=== PATIENT | female | born 1960 | race Caucasian/White ===

== ENCOUNTER → 2017-12-27 09:54 | Outpatient (REF) | payer SELFPAY ==
[2017-12-27 13:29] LABS: Basophils % 0.5 % (0.1-2.0); Eosinophils # 0.1 K/mm3 (0.0-0.4); Eosinophils % 1.3 % (0.1-12.0); Hematocrit 43.2 % (37.0-47.0); Hemoglobin 14.6 g/dL (12.2-16.2); Lymphocytes # 3.1 K/mm3 (0.7-4.5); Lymphocytes % 38.3 K/mm3 (10-50); Mean Corpuscular HGB Conc 33.8 g/dL (31.8-35.4); Mean Corpuscular Hemoglobin 30.2 pg (27.0-31.2); Mean Corpuscular Volume 89.4 fl (81-99); Mean Platelet Volume 7.6 fl (7.4-10.4); Monocytes # 0.5 K/mm3 (0.1-1.0); Monocytes % 5.9 % (1.7-9.3); Neutrophils # 4.4 K/mm3 (1.8-7.8); Neutrophils % 53.9 % (37.0-80.0); Platelet Count 301 K/mm3 (142-424); Red Blood Count 4.83 M/mm3 (4.20-5.40); Red Cell Distribution Width 12.3 % (11.5-17.5); White Blood Count 8.1 K/mm3 (4.8-10.8)
[2017-12-27 14:05] LABS: Alanine Aminotransferase 37 U/L (12-78); Albumin/Globulin Ratio 1.1 (1.1-1.8); Alkaline Phosphatase 93 U/L (46-116); Anion Gap 13.1 mEq/L (5-15); Aspartate Amino Transferase 22 U/L (15-37); Bilirubin,Total 0.3 mg/dL (0.2-1.0); Blood Urea Nitrogen 18 mg/dL (7-18); Calcium 9.6 mg/dL (8.5-10.1); Carbon Dioxide 30 mmol/L (21.0-32.0); Chloride 100 mmol/L (98-107); Chol/HDL Ratio 6.3 (1-3.5); Cholesterol 250 mg/dL (140-200); Creatinine,Serum 0.77 mg/dL (0.55-1.02); Estimated Glomerular Filt Rate 77 ml/min (>60); GFR (African American) 93 ML/MIN (>60); Globulin 3.8 gm/dl (1.3-3.2); Glucose 97 mg/dL (74-106); HDL Cholesterol 40 mg/dL (29-89); LDL Cholesterol 181 mg/dL (0-130); Potassium 4.1 mmoL/L (3.5-5.1); Sodium 139 mmol/L (136-145); T4 (Thyroxine) 8.5 ug/dl (4.7-13.3); Thyroid Stimulating Hormone 1.73 uIU/ml (0.358-3.740); Total Protein,Serum 7.8 gm/dL (6.4-8.2); Triglycerides 143 mg/dL (30-200); VLDL Cholesterol 29 mg/dL (0-40)
[2017-12-28 11:07] LABS: Vitamin D 25 Hydroxy 18.8 ng/mL (30.0-100.0)
== END ==
LOC: LAB 09:54
PROVIDERS: Visit Provider Physician Assistant
DX: R53.83 Other fatigue (principal)
CPT/HCPCS: 80053; 80061; 82652; 84436; 84443; 85025

== ENCOUNTER 2018-04-20 22:15 | Observation (INO) ==
[2018-04-20 22:59] LABS: Basophils % 0.3 % (0.1-2.0); Eosinophils # 0.1 K/mm3 (0.0-0.4); Eosinophils % 1.5 % (0.1-12.0); Hematocrit 42.2 % (37.0-47.0); Hemoglobin 14.3 g/dL (12.2-16.2); Lymphocytes # 3.4 K/mm3 (0.7-4.5); Lymphocytes % 37.4 K/mm3 (10-50); Mean Corpuscular HGB Conc 33.8 g/dL (31.8-35.4); Mean Corpuscular Hemoglobin 29.8 pg (27.0-31.2); Mean Corpuscular Volume 88.3 fl (81-99); Mean Platelet Volume 7.1 fl (7.4-10.4); Monocytes # 0.5 K/mm3 (0.1-1.0); Monocytes % 5.2 % (1.7-9.3); Neutrophils % 55.5 % (37.0-80.0); Platelet Count 294 K/mm3 (142-424); Red Blood Count 4.78 M/mm3 (4.20-5.40); Red Cell Distribution Width 12.8 % (11.5-17.5)
--- NOTE | 2018-04-20 23:02 | Emergency Department Note ---
ED Disposition Clinical Impression: Chest pain Qualifiers: Chest pain type: precordial pain Qualified Code(s): R07.2 - Precordial pain Disposition: Admitted as Observation Condition on Discharge: Good Referrals: Silverio Tinsley MD [Primary Care Provider] - - Critical Care Critical Care Time: No Attestation: On 04/20/18, the high probability of a clinically significant, sudden or life threatening deterioration of the following system(s) required my full and direct attention, intervention and personal management. The time I documented below is in addition to time spent performing reported procedures but includes the following listed in this critical care notation. Medical Decision Making - Medical Records Medical records reviewed: Yes: I reviewed the patient's medical records. - Jamarcus Inquiry Pt receiving controlled substance: No Vital Signs: 04/20/18 22:20 04/20/18 23:10 Temperature 98.2 F Temperature Source Oral Pulse Rate [Right Brachial] 81 67 Respiratory Rate 14 14 Blood Pressure [Right Arm] 162/93 143/80 Blood Pressure Mean [Right Arm] 116 101 Blood Pressure Source [Right Arm] Automatic Cuff Automatic Cuff Blood Pressure Position [Right Arm] Sitting Sitting 02 Sat by Pulse Oximetry 99 100 Oxygen Delivery Method Room Air Room Air - Lab Data Lab results reviewed: Yes: I reviewed the patient's lab results. Lab Results 04/20/18 22:45: WBC 9.0, RBC 4.78, Hgb 14.3, Hct 42.2, MCV 88.3, MCH 29.8, MCHC 33.8, RDW 12.8, Plt Count 294, MPV 7.1 L, Neut % (Auto) 55.5, Lymph % (Auto) 37.4, [place] % (Auto) 5.2, Eos % (Auto) 1.5, Baso % (Auto) 0.3, Neut # (Auto) 5.0 , Lymph # (Auto) 3.4, [place] # (Auto) 0.5, Eos # (Auto) 0.1, Baso # (Auto) 0.0 04/20/18 22:45: Sodium 143, Potassium 3.8, Chloride 105, Carbon Dioxide 30, Anion Gap 11.8, BUN 13, Creatinine 1.04 H, Estimated Creat Clear 73, Estimated GFR 54 L, Est GFR ( Amer) 66, Glucose 106, Calcium 9.3, Troponin I < 0.02 04/20/18 23:25: Urine Color Yellow, Urine Appearance Sl cloudy, Urine pH 7.0, Ur Specific [place] 1.010, Urine Protein Negative, Urine Glucose (UA) Negative, Urine Ketones Negative, Urine Blood Negative, Urine Nitrate Negative, Urine Bilirubin Negative, Urine Urobilinogen 0.2, Ur Leukocyte Esterase 1+ A, Urine WBC 10-20, Ur Squamous Epith Cells 10-20, Urine Bacteria 1+ Result diagrams: 04/20/18 22:45 04/20/18 22:45 Orders (Tests/Meds): ED MEDICATIONS Generic Name Dose Route Start Last Admin Trade Name Freq PRN Reason Stop Dose Admin Sodium Chloride 1,000 mls @ 999 mls/hr 04/20/18 22:45 04/20/18 22:42 Sod Chlor 0.9% 1000ml Bag IV 04/20/18 23:45 999 mls/hr .Q1H1M ADELA Administration Discontinued Medications Generic Name Dose Route Start Last Admin Trade Name Freq PRN Reason Stop Dose Admin Aspirin 324 mg 04/20/18 22:34 04/20/18 22:40 Aspirin 81mg Chewable Tablet PO 04/20/18 22:35 324 mg ONCE ONE Administration Famotidine 20 mg 04/20/18 23:04 04/20/18 23:08 Pepcid 20mg/2ml Vial IV 04/20/18 23:05 20 mg ONCE ONE Administration Metoclopramide HCl 10 mg 04/20/18 23:04 04/20/18 23:08 Reglan 10mg/2ml Vial IVP 04/20/18 23:05 10 mg ONCE ONE Administration Ondansetron HCl 4 mg 04/20/18 22:34 04/20/18 22:40 Zofran 4mg/2ml Vial IV 04/20/18 22:35 4 mg ONCE ONE Administration ORDERS Category Date Time Status XR chest 2V Stat Exams 04/20/18 22:33 Taken Urine Culture Stat Micro 04/20/18 23:25 Received ECG Request by /Mi Stat Y 04/20/18 22:33 Ordered - Radiology Data #1 Image(s): Chest Image Reviewed: Yes I reviewed the patient's radiology image Preliminary Findings: Normal/NAD - ECG Data Tracing #1 I reviewed this ECG and interpreted as documented below: Normal Sinus Rhythm: Yes Ischemic changes: non-specific ST-T wave changes General Adult HPI - General Chief complaint: PAIN Stated complaint: PAIN BETWEEN SHOULDERS Time Seen by Provider: 04/20/18 22:30 Mode of Arrival: Ambulatory Source of Information: Patient, Spouse, Medical Record Limitations: No Limitations Description of Symptoms (Recalled from ER Triage Doc. by RN): Pt states she is having pain in between her shoulders, and burning in her chest, and pain in epigastric pain that started about 7pm last 24hours. Pt also states she is sick to her stomach. Pt denies any other symptoms at this time, and denies any injuries leading up to the pain. - History of Present Illness HPI narrative: pt with ant chest pain with rad to back over the last few days - no known hear disease and has gerd - no melena and no sob or resp sx Onset (ago): day(s) Location: chest Radiation: back Severity: moderate Associated symptoms: denies other symptoms Treatments prior to arrival: none - Related Data Home Medications Medication Instructions Recorded Confirmed Lisinopril/Hydrochlorothiazide 2 tab PO DAILY 04/20/18 04/20/18 [Lisinopril-Hctz 20-12.5 mg Tab] cloNIDine HCl [Catapres] 0.1 mg PO QHS 04/20/18 04/20/18 Allergies Allergy/AdvReac Type Severity Reaction Status Date / Time No Known Allergies Allergy Verified 04/20/18 22:31 [facility] History I have reviewed the patient's past medical history: Yes Medical History: Reports:: Hyperlipidemia, Hypertension Other Surgeries: Yes: Other Amputation: No Fractures: No Comment: GALLBLADDER REMOVAL - Social History Smoking Status: Never smoker Alcohol Intake: never Substance Use Type: denies use Occupational Status: employed Housing: house Household Members: spouse - Psychiatric History Expresses thoughts of harming self/others: None Suicide Plan Description: No Plan Family Hx:: No significant family history ROS Obtained: Yes All systems reviewed & no additional complaints - Constitutional Constitutional: Denies fever(s) - Eyes Eyes: Denies change in vision - ENT Ears, Nose, Mouth, and Throat: Denies sore throat - Cardiovascular Cardiovascular: Reports chest pain - Respiratory Respiratory: Yes cough, Yes non-productive cough, Yes dyspnea, No coughing up blood - Gastrointestinal Gastrointestingal: Denies: abdominal pain - Genitourinary Female Genitourinary: Denies hematuria - Musculoskeletal Musculoskeletal: Denies joint pain, Denies joint swelling - Integumentary/Breasts Skin/Breast: Denies rash - Neurologic Neurologic: Denies headache(s) Physical Exam - General General appearance: in no apparent distress - Head Head exam: normocephalic - Eye Eye exam: Present: PERRL, EOMI - ENT ENT exam: Present: mucous membranes moist - Neck Neck exam: Present: trachea midline - Respiratory Respiratory exam: Present: normal lung sounds bilaterally - Cardiovascular Cardiovascular exam: Present: regular rate, systolic murmur - Abdominal Exam Abdominal exam: Present: soft - Extremities Exam Extremities exam: Absent: calf tenderness - Back Exam Back exam: Present: normal inspection - Neurological Exam Neurological exam: Present: alert, oriented X3, CN II-XII intact - Psychiatric Psychiatric exam: Present: normal affect - Skin Skin exam: Absent: rash
[2018-04-20 23:09] LABS: Anion Gap 11.8 mEq/L (5-15); Blood Urea Nitrogen 13 mg/dL (7-18); Calcium 9.3 mg/dL (8.5-10.1); Carbon Dioxide 30 mmol/L (21.0-32.0); Chloride 105 mmol/L (98-107); Glucose 106 mg/dL (74-106); Potassium 3.8 mmoL/L (3.5-5.1); Sodium 143 mmol/L (136-145)
[2018-04-20 23:30] LABS: Appearance,Urine SL CLOUDY (Clear); Bilirubin,Urine Negative (Negative); Blood, Urine Negative (Negative); Color,Urine YELLOW (Yellow); Glucose,Urine (UA) Negative (Negative); Ketones,Urine Negative (Negative); Leukocyte Esterase,Urine 1+ (Negative); Microscopic, Urine URINE MICROSCOPIC (MICROSCOPIC); Protein,Urine Negative (Negative); Urobilinogen,Urine 0.2 EU/dl (0.2)
[2018-04-20 23:33] LABS: Bacteria,Urine 1+ /lpf
[2018-04-21 06:56] LABS: Basophils % 0.3 % (0.1-2.0); Eosinophils % 0.6 % (0.1-12.0); Lymphocytes # 2.3 K/mm3 (0.7-4.5); Lymphocytes % 30.7 K/mm3 (10-50); Mean Corpuscular HGB Conc 32.9 g/dL (31.8-35.4); Mean Corpuscular Hemoglobin 29.2 pg (27.0-31.2); Mean Corpuscular Volume 88.6 fl (81-99); Mean Platelet Volume 6.8 fl (7.4-10.4); Monocytes # 0.4 K/mm3 (0.1-1.0); Monocytes % 5.2 % (1.7-9.3); Neutrophils # 4.7 K/mm3 (1.8-7.8); Neutrophils % 63.2 % (37.0-80.0); Platelet Count 253 K/mm3 (142-424); Red Blood Count 4.18 M/mm3 (4.20-5.40); Red Cell Distribution Width 12.7 % (11.5-17.5); White Blood Count 7.5 K/mm3 (4.8-10.8)
[2018-04-21 07:13] LABS: Hemoglobin 12.2 g/dL (12.2-16.2)
[2018-04-21 07:28] LABS: Anion Gap 9.8 mEq/L (5-15); Blood Urea Nitrogen 11 mg/dL (7-18); Calcium 8.4 mg/dL (8.5-10.1); Carbon Dioxide 29 mmol/L (21.0-32.0); Chloride 107 mmol/L (98-107); Chol/HDL Ratio 5.4 (1-3.5); Cholesterol 174 mg/dL (140-200); Glucose 110 mg/dL (74-106); HDL Cholesterol 32 mg/dL (29-89); LDL Cholesterol 120 mg/dL (0-130); Potassium 3.8 mmoL/L (3.5-5.1); Sodium 142 mmol/L (136-145); Triglycerides 108 mg/dL (30-200); VLDL Cholesterol 22 mg/dL (0-40)
--- NOTE | 2018-04-21 09:17 | History & Physical Report ---
*Admission Date: 04/20/18 *Chief complaint: chest pain *History of present illness: this wf with new onset of ant chest pain which has gripping quality with rad to back over the last 2 days with act and rest - pos fh of ht disease- she also has had gerd sx but feels this is different - no melena or palpitations and no syncope - pt admitted for card eval and treatment [facility] History I have reviewed the patient's past medical history: Yes Medical History: Reports:: Hyperlipidemia, Hypertension Other Surgeries: Yes: Cholecystectomy, Tubal Ligation, Other Amputation: No Fractures: No - *Social History Educational Level: Attended College Smoking Status: Never smoker Alcohol Intake: never Substance Use Type: denies use Occupational Status: employed Housing: house Household Members: spouse - Psychiatric History Expresses thoughts of harming self/others: None Suicide Plan Description: No Plan *Family Hx:: No significant family history Review of Systems - Review of Systems Review of systems:: pertinent systems reviewed and negative unless documented below - Constitutional Denies fever(s) - Eyes Denies change in vision - ENT Denies sore throat, Denies tongue swelling - *Cardiovascular Reports chest pain, Reports chest pain at rest - *Respiratory Denies cough - *Gastrointestinal Denies abdominal pain, Denies black, tarry stools - *Genitourinary Denies blood in urine - *Musculoskeletal Denies joint pain - Integumentary/Breasts Denies rash - *Neurologic Denies headache(s), Denies seizure-like activity Meds Home Medications Medication Instructions Recorded Confirmed Type Lisinopril/Hydrochlorothiazide 2 tab PO DAILY 04/20/18 04/20/18 History [Lisinopril-Hctz 20-12.5 mg Tab] cloNIDine HCl [Catapres] 0.1 mg PO QHS 04/20/18 04/20/18 History Allergies Allergy/AdvReac Type Severity Reaction Status Date / Time No Known Allergies Allergy Verified 04/20/18 22:31 Exam Vital signs and Labs for Last 24 Hours: Temp Pulse Resp BP Pulse Ox 98.6 F 64 16 122/76 100 04/21/18 08:00 04/21/18 08:00 04/21/18 08:00 04/21/18 08:57 04/21/18 08:00 Laboratory Results - last 24 hr 04/20/18 22:45: WBC 9.0, RBC 4.78, Hgb 14.3, Hct 42.2, MCV 88.3, MCH 29.8, MCHC 33.8, RDW 12.8, Plt Count 294, MPV 7.1 L, Neut % (Auto) 55.5, Lymph % (Auto) 37.4, [place] % (Auto) 5.2, Eos % (Auto) 1.5, Baso % (Auto) 0.3, Neut # (Auto) 5.0 , Lymph # (Auto) 3.4, [place] # (Auto) 0.5, Eos # (Auto) 0.1, Baso # (Auto) 0.0 04/20/18 22:45: Sodium 143, Potassium 3.8, Chloride 105, Carbon Dioxide 30, Anion Gap 11.8, BUN 13, Creatinine 1.04 H, Estimated Creat Clear 73, Estimated GFR 54 L, Est GFR ( Amer) 66, Glucose 106, Calcium 9.3, Troponin I < 0.02 04/20/18 23:25: Urine Color Yellow, Urine Appearance Sl cloudy, Urine pH 7.0, Ur Specific [place] 1.010, Urine Protein Negative, Urine Glucose (UA) Negative, Urine Ketones Negative, Urine Blood Negative, Urine Nitrate Negative, Urine Bilirubin Negative, Urine Urobilinogen 0.2, Ur Leukocyte Esterase 1+ A, Urine WBC 10-20, Ur Squamous Epith Cells 10-20, Urine Bacteria 1+ 04/21/18 00:10: Troponin I < 0.02 04/21/18 03:00: Troponin I < 0.02 04/21/18 06:25: WBC 7.5, RBC 4.18 L, Hgb 12.2 D, Hct 37.0, MCV 88.6, MCH 29.2, MCHC 32.9, RDW 12.7, Plt Count 253, MPV 6.8 L, Neut % (Auto) 63.2, Lymph % (Auto ) 30.7, [place] % (Auto) 5.2, Eos % (Auto) 0.6, Baso % (Auto) 0.3, Neut # (Auto) 4.7, Lymph # (Auto) 2.3, [place] # (Auto) 0.4, Eos # (Auto) 0.0, Baso # (Auto) 0.0 04/21/18 06:25: Sodium 142, Potassium 3.8, Chloride 107, Carbon Dioxide 29, Anion Gap 9.8, BUN 11, Creatinine 0.97, Estimated Creat Clear 78, Estimated GFR 59, Est GFR ( Amer) 71, Glucose 110 H, Calcium 8.4 L, Troponin I < 0.02, Triglycerides 108, Cholesterol 174, LDL Cholesterol 120, VLDL Cholesterol 22, HDL Cholesterol 32, Cholesterol/HDL Ratio 5.4 H I & O for Last 24 hours: Intake & Output 04/18/18 04/19/18 04/20/18 04/21/18 11:59 11:59 11:59 11:59 Intake Total 906 / 906 Balance 906 / 906 Weight 174 lb 5 oz - Constitutional no acute distress - *Routine HEENT Exam Head: Present: normocephalic, atraumatic Eye: Present: EOMI, PERRL. Absent: conjunctival icterus ENT: Present: mucous membranes dry - *Routine Neck Exam Present: supple. Absent: JVD - *Routine Respiratory Exam Present: CTA bilaterally - *Routine Cardiovascular Exam Present: RRR, murmur - *Routine Abdominal Exam Present: soft - *Routine Extremities Exam Absent: calf tenderness - *Routine Skin Exam Present: intact - *Routine Neurological Exam Present: alert, oriented X3, CN II-XII intact - Routine Psychiatric Exam Present: normal affect H&P: Result - Labs Labs: Short CBC 04/20/18 04/21/18 Range/Units 22:45 06:25 WBC 9.0 7.5 (4.8-10.8) K/mm3 Hgb 14.3 12.2 D (12.2-16.2) g/dL Hct 42.2 37.0 (37.0-47.0) % Plt Count 294 253 (142-424) K/mm3 BMP 04/20/18 04/21/18 22:45 06:25 Sodium 143 142 Potassium 3.8 3.8 Chloride 105 107 Carbon Dioxide 30 29 BUN 13 11 Creatinine 1.04 H 0.97 Glucose 106 110 H Calcium 9.3 8.4 L Cardiac Enzymes 04/20/18 04/21/18 04/21/18 Range/Units 22:45 00:10 03:00 Troponin I < 0.02 < 0.02 < 0.02 (0.00-0.06) ng/ml 04/21/18 Range/Units 06:25 Troponin I < 0.02 (0.00-0.06) ng/ml Urine 04/20/18 Range/Units 23:25 Urine Color Yellow (Yellow) Urine Appearance Sl cloudy (Clear) Urine pH 7.0 (5.0-8.5) Ur Specific [place] 1.010 (1.005-1.030) Urine Protein Negative (Negative) Urine Glucose (UA) Negative (Negative) Assessment and Plan (1) Chest pain Current visit: Yes Status: Acute Qualifiers: Chest pain type: precordial pain Qualified Code(s): R07.2 - Precordial pain Category: Medical Code(s): R07.9 - Chest pain, unspecified (2) Hypertension Current visit: No Status: Chronic Qualifiers: Hypertension type: essential hypertension Qualified Code(s): I10 - Essential (primary) hypertension Category: Medical Code(s): I10 - Essential (primary) hypertension (3) GERD (gastroesophageal reflux disease) Current visit: Yes Status: Acute Category: Medical Code(s): K21.9 - Gastro -esophageal reflux disease without esophagitis
--- NOTE | 2018-04-21 11:44 | Pharmacy Consult Notes ---
[facility] Pharmacy VTE Monitoring - Patient Demographics Admission date: 04/21/18 Report Date: 04/21/18 Time: 11:44 Allergies/Adverse Reactions: Patient Allergies No Known Allergies Allergy (Verified 04/20/18 22:31) Height: 1.68 m Weight: 79.067 kg Patient Problems: Current Active Problems (Last Updated 12/31/17 @ 08:57 by RABIA Bermudez) Chest pain (Acute) GERD (gastroesophageal reflux disease) (Acute) - VTE Risk Labs: VTE Related Lab Results Hgb 12.2 g/dL (12.2-16.2) D 04/21/18 06:25 Hct 37.0 % (37.0-47.0) 04/21/18 06:25 Plt Count 253 K/mm3 (142-424) 04/21/18 06:25 BUN 11 mg/dL (7-18) 04/21/18 06:25 Creatinine 0.97 mg/dL (0.55-1.02) 04/21/18 06:25 Estimated Creat Clear 78 mL/min (0-300) 04/21/18 06:25 Was VTE Risk Assessment Performed: Yes VTE Score: 1 VTE Risk Level: Very Low Risk - Prophylaxis VTE Prophylaxis Ordered?: Yes Types of VTE Prophylaxis: TEDS Knee High Location of Applied Device: Bilateral Lower Extremeties
[2018-04-22 07:53] VITALS: BP 111/65
--- NOTE | 2018-04-22 10:19 | Consult Report ---
History of Present Illness Consult date: 04/22/18 Requesting physician: Silverio Tinsley Consult reason: chest pain Chief complaint: chest pain, back pain Additional Medical History:: 1. Hypertension, treated for about 20 years 2. Hyperlipidemia, treated for about 20 years 3. Family history of coronary artery disease in her brother with recent MA 4. GERD History of present illness: 58-year-old white female with complaint of burning sensation between the shoulder blades with associated anterior chest discomfort and nausea the last 4 several hours presented to the emergency department for further evaluation. Patient was given a combination of antacid and nitroglycerin paste with gradual improvement in symptoms. Patient was admitted for observation with serial cardiac enzymes normal 4. EKG is sinus with no acute ST segment changes. Patient is long-term hypertensive and hyperlipidemic patient but denies tobacco use or history of diabetes. Her brother who is 3 years older than her recently had a myocardial infarction. Patient admits to taking approximately 800 mg of ibuprofen at night on a regular basis with symptoms of reflux noted. Patient does have somewhat of an active job with physical activity and denies any recent exertional chest pain or shortness of breath. Cardiology consulted for evaluation recommendations. Echocardiogram has been performed with results pending at this time. [facility] History Medical History: Reports:: Hyperlipidemia, Hypertension Other Surgeries: Yes: Cholecystectomy, Tubal Ligation, Other Amputation: No Fractures: No - *Social History Educational Level: Attended College Smoking Status: Never smoker Alcohol Intake: never Substance Use Type: denies use Occupational Status: employed Housing: house Household Members: spouse - Psychiatric History Expresses thoughts of harming self/others: None Suicide Plan Description: No Plan *Family Hx:: No significant family history Meds Home Medications Medication Instructions Recorded Confirmed Type Lisinopril/Hydrochlorothiazide 2 tab PO DAILY 04/20/18 04/20/18 History [Lisinopril-Hctz 20-12.5 mg Tab] cloNIDine HCl [Catapres] 0.1 mg PO HS 04/20/18 04/21/18 History Allergies Allergy/AdvReac Type Severity Reaction Status Date / Time No Known Allergies Allergy Verified 04/20/18 22:31 Review of Systems - *Cardiovascular Reports chest pain, Denies shortness of breath - *Respiratory Denies shortness of breath with activity - *Gastrointestinal Reports abdominal pain, Reports heartburn, Reports nausea - *Musculoskeletal Denies joint pain - *Neurologic Denies headache(s), Denies seizure-like activity Exam Vital signs and Labs for Last 24 Hours: Temp Pulse Resp BP Pulse Ox 98.0 F 62 16 111/65 96 04/22/18 07:51 04/22/18 07:51 04/22/18 07:51 04/22/18 07:51 04/22/18 07:51 I & O for Last 24 hours: Intake & Output 04/19/18 04/20/18 04/21/18 04/22/18 11:59 11:59 11:59 11:59 Intake Total 906 / 906 2412 / 2412 Balance 906 / 906 2412 / 2412 Weight 174 lb 5 oz Microbiology Reports for the Last 24 Hours: Microbiology 04/20/18 23:25 Urine,Clean Catch Urine Culture - Preliminary NO GROWTH AFTER 24 HOURS - *Routine Neck Exam Absent: JVD, carotid bruit - *Routine Respiratory Exam Present: CTA bilaterally - *Routine Cardiovascular Exam Present: RRR. Absent: murmur, gallop, rubs - *Routine Extremities Exam Absent: edema - *Routine Neurological Exam Present: alert, oriented X3, moving all extremities Assessment and Plan (1) Chest pain Current visit: Yes Status: Acute Qualifiers: Chest pain type: precordial pain Qualified Code(s): R07.2 - Precordial pain Category: Medical Code(s): R07.9 - Chest pain, unspecified (2) Hypertension Current visit: No Status: Chronic Qualifiers: Hypertension type: essential hypertension Qualified Code(s): I10 - Essential (primary) hypertension Category: Medical Code(s): I10 - Essential (primary) hypertension (3) GERD (gastroesophageal reflux disease) Current visit: Yes Status: Acute Category: Medical Code(s): K21.9 - Gastro -esophageal reflux disease without esophagitis - Assessment and plan all Dx Assessment and Plan for all problems:: 1. Hours of chest pain with normal troponins and normal EKG. Echocardiogram pending but would recommend medical therapy at this time. 2. Discontinue clonidine 3. Add metoprolol succinate 25 mg daily in the evening time 4. Continue PPI therapy along with lisinopril. 5. Okay for discharge from cardiology standpoint with follow-up in 1-2 weeks.
--- NOTE | 2018-04-22 12:01 | Discharge Summary ---
General - General Admission date:: 04/21/18 Discharge date: 04/22/18 HPI HPI: this wf with new onset of ant chest pain which has gripping quality with rad to back over the last 2 days with act and rest - pos fh of ht disease- she also has had gerd sx but feels this is different - no melena or palpitations and no syncope - pt admitted for card eval and treatment Hospital Course Hospital Course: pt improved with iv meds and has stable card enz and she was seen by card -. Hypertension, treated for about 20 years 2. Hyperlipidemia, treated for about 20 years 3. Family history of coronary artery disease in her brother with recent HI 4. GERD History of present illness: 58-year-old white female with complaint of burning sensation between the shoulder blades with associated anterior chest discomfort and nausea the last 4 several hours presented to the emergency department for further evaluation. Patient was given a combination of antacid and nitroglycerin paste with gradual improvement in symptoms. Patient was admitted for observation with serial cardiac enzymes normal 4. EKG is sinus with no acute ST segment changes. Patient is long-term hypertensive and hyperlipidemic patient but denies tobacco use or history of diabetes. Her brother who is 3 years older than her recently had a myocardial infarction. Patient admits to taking approximately 800 mg of ibuprofen at night on a regular basis with symptoms of reflux noted. Patient does have somewhat of an active job with physical activity and denies any recent exertional chest pain or shortness of breath. Cardiology consulted for evaluation recommendations. Echocardiogram has been performed with results pending at this time Objective Vital signs: Temp Pulse Resp BP Pulse Ox 98.0 F 62 16 111/65 96 04/22/18 07:51 04/22/18 07:51 04/22/18 07:51 04/22/18 07:51 04/22/18 07:51 no acute distress - *Routine HEENT Exam Head: Present: normocephalic Eye: Present: EOMI, PERRL ENT: Present: mucous membranes dry - *Routine Neck Exam Present: supple - *Routine Respiratory Exam Present: CTA bilaterally - *Routine Cardiovascular Exam Present: RRR - *Routine Abdominal Exam Present: soft - *Routine Extremities Exam Present: full ROM - *Routine Skin Exam Present: intact - *Routine Neurological Exam Present: alert, oriented X3, CN II-XII intact - Routine Psychiatric Exam Present: normal affect Results Labs on day of discharge: Preliminary micro results at discharge 04/20/18 23:25 Urine Culture - Preliminary Urine,Clean Catch NO GROWTH AFTER 24 HOURS DS: Diagnosis - Discharge Diagnosis (1) Chest pain Status: Acute (2) Hypertension Status: Chronic (3) GERD (gastroesophageal reflux disease) Status: Acute Discharge Plan - Patient Discharge Instructions ACTIVITY: Continue current activity DIET: continue same diet - Follow up Plan Disposition: Home, Self-Snf Medications: Home Medications Medication Instructions Recorded Confirmed Type Lisinopril/Hydrochlorothiazide 2 tab PO DAILY 04/20/18 04/20/18 History [Lisinopril-Hctz 20-12.5 mg Tab] cloNIDine HCl [Catapres] 0.1 mg PO HS 04/20/18 04/21/18 History Prescriptions/Medication Reconciliation: New hydroCHLOROthiazide [HCTZ 25mg tab] 25 mg PO DAILY tablet Discontinued cloNIDine HCl [Catapres] 0.1 mg PO HS No Action Lisinopril/Hydrochlorothiazide [Lisinopril-Hctz 20-12.5 mg Tab] 2 tab PO DAILY
--- NOTE | 2018-04-22 21:46 | Cardiology Report ---
PROCEDURE: 2-D M-mode and color Doppler study INDICATIONS FOR THE TEST: Chest pain X COPD Heart Murmur Tobacco Smoking Palpitations Fatigue Syncope Edema HypertensionXDiabetes Mellitus Rheumatic Fever SOB MUNOZ Obesity HyperlipidemiaX Family History HDX Additional History PATIENT INFORMATION HEIGHT: 66 WEIGHT:174 GENDER: Female B/P:122/76 2-D/M-MODE INTERPRETATION: 2-D MEASUREMENTS OBSERVED VALUES IN CMS Right Ventricular Dimension (RVDd) 2.8 Interventricular Septum (Thickness)(IVsd) .9 Left Ventricular Internal Dimensions(LVIDd) 4.7 Left Ventricular Posterior Wall (Thickness)(LVPWd) .9 Aortic Root 3.0 Aortic Cusp Separation 1.7 Left Atrial Dimensions (LAD) 3.4 2D 1. Left atrium is normal size, left ventricle is normal size, there is no concentric left ventricular hypertrophy, visually estimated ejection fraction of 55% with no obvious regional wall motion abnormality. 2. The right atrium is normal size, right ventricle is mildly enlarged with normal contractility. 3. The aortic, mitral and tricuspid valve are grossly normal. 4. The pulmonic valve is poorly visualized. 5. No significant pericardial effusion noted. DOPPLER INTERROGATION: Doppler interrogation of the aortic, mitral and tricuspid valvular presence of mild mitral and tricuspid regurgitation, tricuspid regurgitant jet velocity is insufficient for calculation of the right ventricular systolic pressure, diastolic parameters are inconclusive. CONCLUSION: 1. Normal left ventricular size, preserved left ventricular systolic pressure. Estimated ejection fraction 55% no signal wall motion abnormality, diastolic parameters are inconclusive. 2. Mildly enlarged right ventricle with normal contractility. 3. Mild mitral and tricuspid regurgitation 4. No significant pericardial effusion noted.
== END 2018-04-22 13:15 | disposition home or self-care (01) ==
LOC: 2ND 22:15 → ER 22:15 → 2ND 04-21 00:10
PROVIDERS: ADMIT Emergency Medicine; ATTEND Emergency Medicine

== ENCOUNTER → 2019-04-29 17:33 | Outpatient (CLI) | payer OTHER, SELFPAY ==
[2019-04-29 19:58] LABS: Alanine Aminotransferase 29 U/L (12-78); Albumin Level 3.8 gm/dL (3.4-5.0); Alkaline Phosphatase 87 U/L (46-116); Anion Gap 12.9 mEq/L (5-15); Aspartate Amino Transferase 14 U/L (15-37); Bilirubin,Total 0.4 mg/dL (0.2-1.0); Blood Urea Nitrogen 12 mg/dL (7-18); Calcium 9.3 mg/dL (8.5-10.1); Carbon Dioxide 29 mmol/L (21.0-32.0); Chloride 101 mmol/L (98-107); Chol/HDL Ratio 5.9 (1-3.5); Cholesterol 225 mg/dL (140-200); Creatinine,Serum 0.95 mg/dL (0.55-1.02); Estimated Glomerular Filt Rate 60 ml/min (>60); GFR (African American) 73 ML/MIN (>60); Globulin 3.7 gm/dl (1.3-3.2); Glucose 84 mg/dL (74-106); HDL Cholesterol 38 mg/dL (29-89); LDL Cholesterol 149 mg/dL (0-130); Potassium 3.9 mmoL/L (3.5-5.1); Sodium 139 mmol/L (136-145); T4 (Thyroxine) 7.4 ug/dl (4.7-13.3); Total Protein,Serum 7.5 gm/dL (6.4-8.2); Triglycerides 191 mg/dL (30-200); VLDL Cholesterol 38 mg/dL (0-40)
[2019-04-29 21:50] LABS: Basophils % 0.4 % (0.1-2.0); Eosinophils # 0.1 K/mm3 (0.0-0.4); Eosinophils % 1.2 % (0.1-12.0); Hematocrit 41.7 % (37.0-47.0); Hemoglobin 13.6 g/dL (12.2-16.2); Lymphocytes # 3.3 K/mm3 (0.7-4.5); Lymphocytes % 36.3 % (10-50); Mean Corpuscular HGB Conc 32.6 g/dL (31.8-35.4); Mean Corpuscular Hemoglobin 29.4 pg (27.0-31.2); Mean Corpuscular Volume 90.3 fl (81-99); Mean Platelet Volume 7.9 fl (7.4-10.4); Monocytes # 0.5 K/mm3 (0.1-1.0); Monocytes % 5.3 % (1.7-9.3); Neutrophils # 5.1 K/mm3 (1.8-7.8); Neutrophils % 56.8 % (37.0-80.0); Platelet Count 341 K/mm3 (142-424); Red Blood Count 4.61 M/mm3 (4.20-5.40); Red Cell Distribution Width 12.7 % (11.5-17.5)
[2019-05-02 09:42] LABS: Vitamin D 25 Hydroxy 21.7 ng/mL (30.0-100.0)
== END ==
PROVIDERS: Visit Provider Physician Assistant
DX: I10 Essential (primary) hypertension (principal)
CPT/HCPCS: 80053; 80061; 82652; 84436; 84443; 85025

== ENCOUNTER → 2020-11-15 07:12 | Outpatient (CLI) | payer OTHER, SELFPAY ==
[2020-11-15 09:37] LABS: Coronavirus 19 IgG Antibody Negative (Negative); Coronavirus 19 IgM Antibody Negative (Negative)
== END ==
PROVIDERS: Visit Provider Ophthalmology
DX: Z01.812 Encounter for preprocedural laboratory examination (principal)
CPT/HCPCS: 36415; 86328

== ENCOUNTER 2020-11-16 07:13 | Day surgery (SDC) | payer OTHER, SELFPAY ==
[2020-11-09 10:53] VITALS: BMI 29.9
[2020-11-16 08:09] VITALS: BP 136/78; PULSE 60; RESP 18; TEMP 36.3; O2SAT 99
[2020-11-16 09:20] VITALS: BP 109/67; PULSE 59; RESP 16; O2SAT 100
[2020-11-16 09:25] VITALS: BP 109/65; PULSE 57; RESP 16; O2SAT 100
[2020-11-16 09:30] VITALS: BP 110/63; PULSE 55; RESP 16; O2SAT 100
[2020-11-16 09:35] VITALS: BP 109/61; PULSE 54; RESP 16; O2SAT 100
[2020-11-16 09:40] VITALS: BP 128/79; PULSE 55; RESP 16; TEMP 36.6; O2SAT 99
== END 2020-11-16 09:47 | disposition home or self-care (01) ==
LOC: OR 07:14
PROVIDERS: PCP Emergency Medicine; Visit Provider Ophthalmology
PROC: (CPT 66984; principal; 2020-11-16 09:00)
DX: H25.811 Combined forms of age-related cataract, right eye (principal); H02.834 Dermatochalasis of left upper eyelid; H02.831 Dermatochalasis of right upper eyelid; I10 Essential (primary) hypertension; E78.5 Hyperlipidemia, unspecified; K21.9 Gastro-esophageal reflux disease without esophagitis; Z82.49 Family history of ischemic heart disease and other diseases of the circulatory system; Z79.899 Other long term (current) drug therapy
CPT/HCPCS: 66984; V2632

== ENCOUNTER 2021-12-01 11:47 | Emergency (ER) | payer SELFPAY ==
[2021-12-01 13:30] VITALS: BP 131/89; PULSE 83; RESP 18; TEMP 37.3; O2SAT 98; BMI 28.0
[2021-12-01 14:05] LABS: UTC Influenza A Antigen Negative (Negative); UTC Influenza B Antigen Negative (Negative)
--- NOTE | 2021-12-01 14:05 | HMH.EDUTC ---
[facility] [place] Clinical Impression: Viral syndrome Disposition: Home, Self-Care Condition on Discharge: Good Instructions: DI for Viral Syndrome, Nausea and Vomiting-Adult, Diarrhea Additional Instructions: Drink extra fluids with and between meals. If you have difficulty drinking, try very small amounts of water or suck on ice chips. ? Avoid fruit juices, as these do not replace minerals and can actually increase diarrhea. ? Children and adults can use sports drinks to replenish electrolytes. Younger children and infants should use products formulated for children, like oral rehydration solutions. ? Eat food in small amounts and let your stomach recover. ? Get lots of rest. You may feel tired or weak. ? No greasy or fried foods for the next 24-48 hours BRAT diet Bananas Rice Apples and [place] ? Make sure to drink plenty of liquids ? Return if needed ? Straight to ER if any life threatening symptoms ? You was given an outpatient order for diarrhea panel, please collect specimen and bring back to outpatient lab then call back to the [facility] or follow up with family doctor for results ? Follow up with family doctor in the next 48-72 hours if no improvement or any worsening of symptoms Phenergan as prescribed for Vomiting Prescriptions: Promethazine HCl [Phenergan 12.5mg tablet] 12.5 mg PO Q6H PRN #8 tab PRN Reason: Vomiting Transmission Status: Pending to [id number] Referrals: Silverio Tinsley MD [Primary Care Provider] - As needed Forms: Work/School Release Time of Disposition: 14:23 Medical Decision Making - Jamarcus Inquiry Pt receiving controlled substance: No Jamarcus was queried for this patient: No Vital Signs: 12/01/21 13:30 Temperature 99.1 F Temperature Source Oral Pulse Rate [Right Brachial] 83 Respiratory Rate 18 Blood Pressure [Right Arm] 131/89 Blood Pressure Mean [Right Arm] 103 Blood Pressure Source [Right Arm] Automatic Cuff Blood Pressure Position [Right Arm] Sitting 02 Sat by Pulse Oximetry 98 Oxygen Delivery Method Room Air - Lab Data Lab results reviewed: Yes: I reviewed the patient's lab results. Medical Decision Narrative: Medication discussed with [place] [facility] [place] - General Stated complaint: vomiting, diarrhea Time Seen by Provider: 12/01/21 14:05 Mode of Arrival: Ambulatory Source of Information: Patient Limitations: No Limitations Description of Symptoms (Recalled from Triage Doc. by RN): PATIENT C/O NAUSEA, VOMITING, DIARRHEA, BODY ACHES AND CHILLS X 3 DAYS HEENT Symptoms (Recalled from RN notes): No Resp Symptoms (Recalled from RN notes): No Skin Symptoms (Recalled from RN notes): No MS Symptoms (Recalled from RN notes): No Functional Status (Recalled from RN notes): WNL - History of Present Illness Provider Complaint: Patient states that she has been feeling achy and having chills along with N/V/D States that she hasnt been able to keep nothing down but liquids State that she has been taking zofran and it isnt helping much with the vomiting and she was worried that she may have the flu - Related Data Home Medications Medication Instructions Recorded Confirmed Lisinopril/Hydrochlorothiazide 2 tab PO DAILY 12/01/21 12/01/21 [Lisinopril-Hctz 20-12.5 mg Tab] Metoprolol Succinate [Metoprolol 50 mg PO BID 12/01/21 12/01/21 Succinate 50mg Tablet*] Pantoprazole Sodium 40 mg PO DAILY 12/01/21 12/01/21 Previous Rx's Medication Instructions Recorded famotidine 20 mg tablet 20 mg PO DAILY #90 tab 05/18/21 Promethazine HCl [Phenergan 12.5mg 12.5 mg PO Q6H PRN #8 tab 12/01/21 tablet] Allergies Allergy/AdvReac Type Severity Reaction Status Date / Time No Known Allergies Allergy Verified 05/18/21 09:48 - Worker's Comp Is this a Worker's Comp case?: No [facility] History - Hepatitis A Screen Drug use history?: No High risk sexual behaviors?: No History of sexually transmitted infection?: No Currently employed?: No Childcare worker?:
[2021-12-01 14:34] VITALS: BP 131/89; PULSE 83; RESP 18; TEMP 37.3; O2SAT 98
== END 2021-12-01 14:38 | disposition home or self-care (01) ==
PROVIDERS: Emergency Provider Nurse Practitioner; PCP Emergency Medicine
DX: B34.9 Viral infection, unspecified (principal); I10 Essential (primary) hypertension; E78.5 Hyperlipidemia, unspecified; K21.9 Gastro-esophageal reflux disease without esophagitis; E55.9 Vitamin D deficiency, unspecified; G25.81 Restless legs syndrome; G43.909 Migraine, unspecified, not intractable, without status migrainosus; F41.9 Anxiety disorder, unspecified; Z79.899 Other long term (current) drug therapy; Z82.49 Family history of ischemic heart disease and other diseases of the circulatory system
CPT/HCPCS: 87804; 99213; G0463

== ENCOUNTER → 2021-12-08 17:38 | Outpatient (CLI) | payer SELFPAY ==
[2021-12-08 17:30] LABS: Basophils # 0.1 K/mm3 (0-0.2); Basophils % 0.9 % (0.1-2.0); Eosinophils # 0.2 K/mm3 (0.0-0.4); Hematocrit 42.1 % (37.0-47.0); Hemoglobin 14.2 g/dL (12.2-16.2); Lymphocytes # 4.6 K/mm3 (0.7-4.5); Lymphocytes % 47.1 % (10-50); Mean Corpuscular HGB Conc 33.7 g/dL (31.8-35.4); Mean Corpuscular Hemoglobin 31.1 pg (27.0-31.2); Mean Corpuscular Volume 92.5 fl (81-99); Mean Platelet Volume 9.4 fl (7.4-10.4); Monocytes # 0.5 K/mm3 (0.1-1.0); Monocytes % 5.3 % (1.7-9.3); Neutrophils # 4.4 K/mm3 (1.8-7.8); Neutrophils % 44.8 % (37.0-80.0); Platelet Count 390 K/mm3 (142-424); Red Blood Count 4.55 M/mm3 (4.20-5.40); Red Cell Distribution Width 12.7 % (11.5-17.5); White Blood Count 9.8 K/mm3 (4.8-10.8)
[2021-12-08 17:38] LABS: Chloride 104 mmol/L (98-107); Potassium 3.6 mmoL/L (3.5-5.1); Sodium 139 mmol/L (136-145)
[2021-12-08 17:40] LABS: Alanine Aminotransferase 47 U/L (12-78); Aspartate Amino Transferase 49 U/L (14-36); Blood Urea Nitrogen 23 mg/dl (7-17); Estimated Glomerular Filt Rate 73 ml/min (>60); GFR (African American) 88 ML/MIN (>60)
[2021-12-08 17:41] LABS: Albumin Level 4.4 g/dl (3.5-5.0); Albumin/Globulin Ratio 1.4 (1.1-1.8); Alkaline Phosphatase 88 U/L (38-126); Anion Gap 13.6 mEq/L (5-15); Bilirubin,Total 0.8 mg/dl (0.2-1.3); Calcium 9.4 mg/dl (8.4-10.2); Carbon Dioxide 25 mmol/L (22.0-30.0); Cholesterol 136 mg/dl (140-200); Globulin 3.2 g/dL (1.3-3.2); Glucose 98 mg/dl (74-100); Total Protein,Serum 7.6 g/dl (6.3-8.2); Triglycerides 211 mg/dl (30-150); VLDL Cholesterol 42 mg/dL (0-40)
[2021-12-08 17:42] LABS: HDL Cholesterol 27 mg/dl (40-60)
[2021-12-08 17:45] LABS: 25-OH Vitamin D, Total 46.9 ng/mL (30-100)
[2021-12-08 17:52] LABS: Direct LDL Cholesterol 61.88 mg/dL (100-129)
[2021-12-08 18:13] LABS: Thyroid Stimulating Hormone 0.88 uIU/mL (0.465-4.68)
== END ==
LOC: LAB.DROPOF 17:38
PROVIDERS: Visit Provider Physician Assistant
DX: I10 Essential (primary) hypertension (principal); E78.5 Hyperlipidemia, unspecified; K21.9 Gastro-esophageal reflux disease without esophagitis; G25.81 Restless legs syndrome
CPT/HCPCS: 80053; 80061; 82306; 84443; 85025

== ENCOUNTER → 2022-12-18 15:40 | Outpatient (CLI) | payer OTHER, SELFPAY ==
[2022-12-18 18:34] LABS: Basophils # 0.1 K/mm3 (0-0.2); Basophils % 0.5 % (0.1-2.0); Eosinophils # 0.3 K/mm3 (0.0-0.4); Eosinophils % 2.4 % (0.1-12.0); Hematocrit 44.2 % (37.0-47.0); Hemoglobin 14.4 g/dL (12.2-16.2); Lymphocytes # 3.5 K/mm3 (0.7-4.5); Lymphocytes % 29.9 % (10-50); Mean Corpuscular HGB Conc 32.6 g/dL (31.8-35.4); Mean Corpuscular Hemoglobin 29.9 pg (27.0-31.2); Mean Corpuscular Volume 91.5 fl (81-99); Mean Platelet Volume 8.8 fl (7.4-10.4); Monocytes # 0.6 K/mm3 (0.1-1.0); Monocytes % 5.3 % (1.7-9.3); Neutrophils # 7.3 K/mm3 (1.8-7.8); Neutrophils % 62.1 % (37.0-80.0); Platelet Count 333 K/mm3 (142-424); Red Blood Count 4.84 M/mm3 (4.20-5.40); Red Cell Distribution Width 12.9 % (11.5-17.5); White Blood Count 11.8 K/mm3 (4.8-10.8)
[2022-12-18 18:39] LABS: Alanine Aminotransferase 28 U/L (12-78); Albumin Level 4.7 g/dl (3.5-5.0); Albumin/Globulin Ratio 1.4 (1.1-1.8); Alkaline Phosphatase 109 U/L (38-126); Anion Gap 9.6 mEq/L (5-15); Aspartate Amino Transferase 31 U/L (14-36); Bilirubin,Total 0.7 mg/dl (0.2-1.3); Blood Urea Nitrogen 20 mg/dl (7-17); Calcium 9.2 mg/dl (8.4-10.2); Carbon Dioxide 27 mmol/L (22.0-30.0); Chloride 102 mmol/L (98-107); Chol/HDL Ratio 5.5 (1-3.5); Cholesterol 194 mg/dl (140-200); Estimated Glomerular Filt Rate 63 ml/min (>60); GFR (African American) 77 ML/MIN (>60); Globulin 3.3 g/dL (1.3-3.2); Glucose 98 mg/dl (74-100); HDL Cholesterol 35 mg/dl (40-60); Potassium 3.6 mmoL/L (3.5-5.1); Sodium 135 mmol/L (136-145); Triglycerides 243 mg/dl (30-150); VLDL Cholesterol 49 mg/dL (0-40)
[2022-12-18 18:51] LABS: Direct LDL Cholesterol 99.52 mg/dL (100-129)
[2022-12-18 18:56] LABS: 25-OH Vitamin D, Total 30.8 ng/mL (30-100)
[2022-12-18 19:11] LABS: Thyroid Stimulating Hormone 1.89 uIU/mL (0.465-4.68)
== END ==
PROVIDERS: PCP Physician Assistant; Visit Provider Physician Assistant
DX: Z00.00 Encounter for general adult medical examination without abnormal findings (principal); Z79.899 Other long term (current) drug therapy; E66.9 Obesity, unspecified; Z68.29 Body mass index [BMI] 29.0-29.9, adult
CPT/HCPCS: 80053; 80061; 82306; 84443; 85025

== ENCOUNTER → 2023-04-19 15:53 | Outpatient (CLI) | payer OTHER, SELFPAY | PROVIDERS: PCP Physician Assistant; Visit Provider Physician Assistant | DX: R10.2 Pelvic and perineal pain (principal) | CPT/HCPCS: 87086 ==

== ENCOUNTER → 2023-05-17 15:44 | Outpatient (CLI) | payer BC, SELFPAY ==
--- NOTE | 2023-05-17 15:44 | US_ITS ---
PROCEDURE: US TRANSVAGINAL CLINICAL INDICATION: pelvic pain COMPARISON: No exams were available for comparison FINDINGS: Transvaginal and transabdominal sonographic images of the pelvis were obtained. UTERUS: 9.3 cm x 4.8 cmx 5.3 cm with a combined endometrial thickness of 16.9mm. The uterus is retroflexed. Within the cervix there are several nabothian cysts. The largest is 6.1 mm. There is a masslike structure in the cervix measuring 3.4 cm x 1.4 cm. It has vascular flow within it. LEFT OVARY: 2.8 cmx2.3 cmx1.9cm with a volume of 6.4ml.Difficult to differentiate likely due to atrophy. RIGHT OVARY: Was not visualized. Ovaries are not well visualized. There is no fluid in the cul-de-sac. IMPRESSION: 1. Retroflexed uterus, bulky in size and shape. Difficult examination. 2. The endometrium is markedly thickened at 16.9 mm for a woman this age. 3. Unusual appearance of the cervix with possible mass measuring 3.4 x 1.4 cm. There is vascular flow within this mass. Possible endocervical polyp. Cannot rule out cervical neoplasia. 4. Suggest endometrial and cervical biopsy. 5. Ovaries are not well visualized. 6. No fluid in the cul-de-sac. Dictated by: Reji Cabral MD 05/17/2023 20:07 Reji Cabral MD in OV 05/17/2023 20:07
--- NOTE | 2023-05-17 15:44 | XR_ITS ---
FINAL REPORT CLINICAL HISTORY: Pelvic pain COMPARISON: None FINDINGS: The lungs are grossly clear. There is no evidence of effusion, pneumothorax or other significant pleural disease. The mediastinum is unremarkable. The heart size is normal. The abdomen exam demonstrates the visualized intestinal gas pattern to be unremarkable without evidence to suggest obstruction. There is no free intraperitoneal air. no abdominal radiopacities are seen in the abdomen. There is a moderate stool burden. IMPRESSION: Nonspecific bowel gas pattern with a moderate stool burden. Reviewed, Interpreted and Dictated by Yoel Aguirre III, MD Transcribed by Lara Ross Authenticated and . [facility]
== END ==
LOC: RAD 15:44
PROVIDERS: PCP Physician Assistant; Visit Provider Physician Assistant
DX: R10.2 Pelvic and perineal pain (principal)
CPT/HCPCS: 74021; 76830

== ENCOUNTER → 2023-05-24 09:04 | Outpatient (CLI) | payer BC, SELFPAY ==
[2023-05-24 09:29] LABS: Basophils # 0.1 K/mm3 (0-0.2); Basophils % 0.5 % (0.1-2.0); Eosinophils # 0.2 K/mm3 (0.0-0.4); Eosinophils % 1.7 % (0.1-12.0); Hematocrit 41.6 % (37.0-47.0); Hemoglobin 13.5 g/dL (12.2-16.2); Lymphocytes # 2.9 K/mm3 (0.7-4.5); Lymphocytes % 22.8 % (10-50); Mean Corpuscular HGB Conc 32.5 g/dL (31.8-35.4); Mean Corpuscular Hemoglobin 29.7 pg (27.0-31.2); Mean Corpuscular Volume 91.3 fl (81-99); Mean Platelet Volume 7.9 fl (7.4-10.4); Monocytes # 0.7 K/mm3 (0.1-1.0); Monocytes % 5.4 % (1.7-9.3); Neutrophils # 8.7 K/mm3 (1.8-7.8); Neutrophils % 69.7 % (37.0-80.0); Platelet Count 295 K/mm3 (142-424); Red Blood Count 4.56 M/mm3 (4.20-5.40); Red Cell Distribution Width 13.1 % (11.5-17.5); White Blood Count 12.5 K/mm3 (4.8-10.8)
[2023-05-24 12:02] LABS: Alanine Aminotransferase 30 U/L (12-78); Albumin Level 4.4 g/dl (3.5-5.0); Albumin/Globulin Ratio 1.3 (1.1-1.8); Alkaline Phosphatase 95 U/L (38-126); Anion Gap 17.1 mEq/L (5-15); Aspartate Amino Transferase 28 U/L (14-36); Bilirubin,Total 0.3 mg/dl (0.2-1.3); Blood Urea Nitrogen 24 mg/dl (7-17); Calcium 9.4 mg/dl (8.4-10.2); Carbon Dioxide 25 mmol/L (22.0-30.0); Chloride 105 mmol/L (98-107); Estimated Glomerular Filt Rate 45 ml/min (>60); GFR (African American) 55 ML/MIN (>60); Globulin 3.4 g/dL (1.3-3.2); Glucose 112 mg/dl (74-100); Potassium 4.1 mmoL/L (3.5-5.1); Sodium 143 mmol/L (136-145); Total Protein,Serum 7.8 g/dl (6.3-8.2)
[2023-05-24 12:17] LABS: HCG,Quantitative 3 mIU/ml (0-5.42)
== END ==
PROVIDERS: PCP Physician Assistant; Visit Provider Obstetrics & Gynecology
DX: R19.00 Intra-abdominal and pelvic swelling, mass and lump, unspecified site (principal)
CPT/HCPCS: 36415; 80053; 84702; 85025

== ENCOUNTER 2023-05-25 10:20 | Day surgery (SDC) | payer BC, SELFPAY ==
[2023-05-24 09:24] VITALS: BMI 31.2
[2023-05-25] VITALS (11 sets, daily range): BP systolic 109–139; BP diastolic 65–80; PULSE 54–72; RESP 12–18; TEMP 36.2–43; O2SAT 92–99
--- NOTE | 2023-05-25 10:48 | P.PNANES_ITS ---
[facility] Disclaimer: The information contained in this section may have been updated after the patient was seen, as this information can be updated by other users. Medical History Anxiety Cataract GERD (gastroesophageal reflux disease) Hyperlipidemia (~12/31/17) Hypertension RLS (restless legs syndrome) Vitamin D deficiency (~12/31/17) Surgical History H/O tubal ligation History of cholecystectomy Family History Other Coronary artery disease Diabetes Heart attack Hyperlipidemia Hypertension Stroke Social History Smoking Status: Never smoker second hand exposure: Yes alcohol intake: never substance use type: denies use current occupational status: other Travel in the last 8 weeks: None household members: spouse housing: house current occupation: [employer] current occupational exposures/hazards: No caffeine: Yes [facility] Anesthesia Checklist Patient Identification Patient Identification: Arm Band Structural Data Admitted From: Home Planned Operative Procedure/s: Hysteroscopy, D&C, Myosure Ablation Consent for Planned Operative Procedure(s) Verified: Yes Verified Documents: Surgical Consent and History and Physical NPO Status Verified Time NPO: 00:00 Additional verifications Anesthesia Reactions: No Hx Blood Transfusions: No Blood Transfusion Reaction: No Airway Assessment Mallampati Score:: Class II C-Spine Mobility Assessed: Yes TMJ Mobility Assessed: Yes Dentition: Good Dentition Neurological Assessment Level of Consciousness: Awake and Alert Anesthesia Plan Anesthesia Risk discussed: Yes Anesthesia Plan: Verified ASA Class: II Anesthesia Type: General
--- NOTE | 2023-05-25 12:47 | EXP.ANES.I ---
[facility] Anesthesia Record Part I Anesthesia Record I Intake, IV Amount: 800 Hydration: Adequate Estimated blood loss (mL): 0 Urine output (mL): 25 Blood Pressure: 114/72 SaO2: 96 Pulse Rate: 66 Airway Patency: Patent Respiratory Rate: 12 Temperature: 97.1 F Patient is:: Awake and Stable Stable to PACU at:: 12:45
--- NOTE | 2023-05-25 13:24 | P.OP_ITS ---
Date of procedure: 05/25/23 Pre-op Diagnosis:: 1. Postmenopausal bleeding 2. Cervical mass noted on transvaginal ultrasound 3. Thickened endometrial stripe Post-op Diagnosis:: 1. Postmenopausal bleeding 2. Cervical mass noted on transvaginal ultrasound 3. Thickened endometrial stripe Procedure performed:: 1. Exam under anesthesia 2. Pap smear 3. Fractional D&C 4. Hysteroscopy, dilation, and MyoSure curettage Surgeon:: Tiffany Crisostomo DO [employer]ER:: Jacob Guerin Anesthesia: GETA Estimated blood loss (mL): 10 Operative findings:: Findings: -EUA revealed an 10-week anteverted uterus with smooth contour. Narrowed vaginal introidus. no significant prolapse or support defects noted. No cervical or vaginal masses appreciated. No adnexal masses palpable. Rectal exam completed and normal without defects, no palpable masses -Hysteroscopy revealed diffusely proliferative endometrium. Diffuse hyperplasia without any noticable polyps or fibroids. Atropic without significant bleeding. Operative note:: The patient was taken back to the OR where general anesthesia was obtained.? She was placed in the dorsal lithotomy position using yellowfin stirrups.? A timeout was performed.?A right angle retractor was used to visualize the cervix and collect a pap smear. Patient was sterilely prepped and draped in normal fashion. Weighted speculum was placed and a right angle was used to visualize the cervix. Single-tooth tenaculum was used to grasp anterior lip of the cervix, a single-tooth tenaculum was applied to the anterior lip of the cervix and the os was dilated to accomodate the myosure scope. Device set up, primed and zeroed. Telfa was placed in the vagina and a serrated curette was used to obtain the endocervical curettings. The hysterscope was inserted through the cervical canal, immediately findings above or noted. Images were obtained. The endometrium was so diffusely proliferative that the tubal ostia were not easily identified. Myosure was used to obtain endometrial curettings. Total fluid deficit was less than 300mLs. Following adequate sampling of the endometrium the MyoSure hysteroscope was removed.? The single-tooth tenaculum was removed and hemostasis was noted at the tenaculum sites.? All instruments were removed from the vagina.? All counts were correct, per nursing.?This concluded the procedure, the patient was awakened from anesthesia, and transferred to the PACU in stable condition. Condition: stable Disposition: PACU Specimens:: 1. Pap smear 2. Endocervical curettings 3. Endometrial curettings Complications:: None
--- NOTE | 2023-05-25 13:45 | SUR.OPER ---
Pap smear specimen collected by DO Maximiliano. Specimen sent with DO Maximiliano.
--- NOTE | 2023-05-25 14:13 | P.PNANES_ITS ---
[facility] Anesthesia Record Part II Anesthesia Record Part II Discharge Time: 13:15 Destination: Surgical Day Care (OP Surgery) PACU nurse assessment reviewed?: Yes Patient Condition:: Good Anesthesia Complications:: None Swallowing reflex intact?: Yes Airway Patency: Patent Cyanosis?: No Blood Pressure: 110/65 SaO2: 98 Respiratory Rate: 12 Pulse Rate: 54 Temperature: 97.1 F Mental Status: Alert & Oriented Pain level:: 0 Nausea and/or vomitting:: None Intake, IV Amount: 0 Hydration: Adequate
== END 2023-05-25 14:14 | disposition home or self-care (01) ==
PROVIDERS: PCP Physician Assistant; Visit Provider Obstetrics & Gynecology
PROC: (CPT 58558; principal; 2023-05-25 12:00)
DX: C54.1 Malignant neoplasm of endometrium; N95.0 Postmenopausal bleeding; N85.4 Malposition of uterus
CPT/HCPCS: 58558; J2405

== ENCOUNTER 2023-08-14 13:10 | Emergency (ER) | payer BC, SELFPAY ==
[2023-08-14 13:12] VITALS: BP 119/78; PULSE 72; RESP 19; TEMP 36.9; O2SAT 97; BMI 29.0
--- NOTE | 2023-08-14 14:02 | CA_ITS ---
FINAL REPORT CLINICAL HISTORY: BILATERAL CALF PAIN,EDEMA,POST-OP HAD HYSTERECTOMY IN JUL. PT ON LOVENOX FINDINGS: Color Doppler, duplex Doppler and compression sonography of the bilateral lower extremities was performed. There is no evidence of deep venous thrombosis from the level of the groin to the calf. The deep veins are patent and compressible. IMPRESSION: No evidence of deep venous thrombosis bilateral lower extremities. Reviewed, Interpreted and Dictated by Yoel Aguirre III, MD Transcribed by Tari Brock Authenticated and [facility]
--- NOTE | 2023-08-14 14:22 | PC.NURSE ---
pt taken to vascular dept for venous doppler
[2023-08-14 14:31] LABS: Chloride 99 mmol/L (98-107); Potassium 4.2 mmoL/L (3.5-5.1); Sodium 137 mmol/L (136-145)
[2023-08-14 14:33] LABS: Alanine Aminotransferase 38 U/L (12-78); Aspartate Amino Transferase 33 U/L (14-36)
[2023-08-14 14:34] LABS: Albumin Level 4.7 g/dl (3.5-5.0); Albumin/Globulin Ratio 1.3 (1.1-1.8); Alkaline Phosphatase 94 U/L (38-126); Anion Gap 11.2 mEq/L (5-15); Bilirubin,Total 0.5 mg/dl (0.2-1.3); Calcium 9.3 mg/dl (8.4-10.2); Carbon Dioxide 31 mmol/L (22.0-30.0); Globulin 3.6 g/dL (1.3-3.2); Glucose 114 mg/dl (74-100); Magnesium 1.7 mg/dl (1.6-2.3); Total Protein,Serum 8.3 g/dl (6.3-8.2)
--- NOTE | 2023-08-14 14:38 | HMH.EDGENADL ---
Discharge Plan Disposition Patient Disposition: Home, Self-Care Condition: Good Prescriptions Prescriptions: No Action famotidine 20 mg tablet 20 mg PO DAILY Qty: 90 3RF lisinopril 40 mg tablet 40 mg PO DAILY Qty: 90 0RF hydrochlorothiazide 25 mg tablet 25 mg PO DAILY Qty: 90 0RF pantoprazole 40 mg tablet,delayed release (DR/EC) See Rx Instructions .ROUTE .COMPLEX Qty: 90 3RF Rx Instructions: Take 1 tablet by mouth once daily atorvastatin 10 mg tablet 10 mg PO HS metoprolol succinate 100 mg tablet extended release 24 hr 100 mg PO DAILY oxycodone 5 mg tablet 5 mg PO Q8H PRN (Reason: pain) Qty: 5 0RF Referrals Follow up/Referrals: Leslie Hart PA [Primary Care Provider] - See instructions Activity Restrictions/Add. Instructions Additional Instructions/Restrictions: You were evaluated in the emergency department today. Please follow-up closely with your primary care provider. Return to the emergency department for new or worsening symptoms. Clinical Impressions Clinical Impression: Bilateral leg cramps Instructions Patient Instructions: DI for Nocturnal Leg Cramps Discharge ED Provider: Crys Grimm General Adult HPI General Chief complaint: PAIN Stated complaint: pain in legs no accident Time Seen by Provider: 08/14/23 13:46 Mode of Arrival: Ambulatory Source of Information: Patient and Spouse Limitations: No Limitations Description of Symptoms (Recalled from ER Triage Doc. by RN): 63 yo F presents to ED with c/o bilateral leg pain. pt reports she had surgery on Jul 25 at . pts reports she has been having pain sine she come home from the surgery, but pt reports pain ongoing for a couple of days. pt has been taking a daily heparin shot. History of Present Illness HPI narrative: This patient is a 63-year-old female with a history of cervical mass status post hysterectomy currently on heparin for DVT prevention presenting to the emergency department for evaluation with concern for bilateral lower extremity pain and cramping. She states that her provider told her to come to the emergency department immediately for bilateral lower extremity ultrasound. She denies any other concerns or complaints. She states that the cramps are worse at night, but it feels like a dull ache during the day. She notes she has been eating and drinking fine and has no fevers, chills, or other concerns. She denies any history of blood clots or clotting issues. Related Data Home Medications Medication Instructions Recorded Confirmed atorvastatin 10 mg tablet 10 mg PO HS High Cholesterol 05/24/23 05/24/23 metoprolol succinate 100 mg 100 mg PO DAILY High Blood Pressure 05/24/23 05/24/23 tablet,extended release 24 hr Previous Rx's Medication Instructions Recorded famotidine 20 mg tablet 20 mg PO DAILY GERD #90 tabs 03/12/23 oxycodone 5 mg tablet 5 mg PO Q8H PRN pain #5 tabs 05/25/23 hydrochlorothiazide 25 mg tablet 25 mg PO DAILY bp #90 tabs 05/30/23 lisinopril 40 mg tablet 40 mg PO DAILY #90 tabs 05/30/23 pantoprazole 40 mg tablet,delayed See Rx Instructions .Route 07/09/23 release .COMPLEX Heartburn #90 tabs Allergies Allergy/AdvReac Type Severity Reaction Status Date / Time No Known Allergies Allergy Verified 05/25/23 10:34 [facility] Disclaimer: The information contained in this section may have been updated after the patient was seen, as this information can be updated by other users. Medical History Anxiety Cataract GERD (gastroesophageal reflux disease) Hyperlipidemia (~12/31/17) Hypertension RLS (restless legs syndrome) Vitamin D deficiency (~12/31/17) Surgical History H/O tubal ligation History of cholecystectomy Family History Other Coronary artery disease Diabetes He
[2023-08-14 14:46] LABS: Basophils # 0.1 K/mm3 (0-0.2); Basophils % 0.7 % (0.1-2.0); Eosinophils # 0.6 K/mm3 (0.0-0.4); Eosinophils % 6.3 % (0.1-12.0); Hematocrit 40.8 % (37.0-47.0); Hemoglobin 13.7 g/dL (12.2-16.2); Lymphocytes # 3.3 K/mm3 (0.7-4.5); Lymphocytes % 32.6 % (10-50); Mean Corpuscular HGB Conc 33.6 g/dL (31.8-35.4); Mean Corpuscular Hemoglobin 30.4 pg (27.0-31.2); Mean Corpuscular Volume 90.5 fl (81-99); Mean Platelet Volume 8.6 fl (7.4-10.4); Monocytes # 0.6 K/mm3 (0.1-1.0); Monocytes % 5.5 % (1.7-9.3); Neutrophils # 5.5 K/mm3 (1.8-7.8); Neutrophils % 54.9 % (37.0-80.0); Platelet Count 482 K/mm3 (142-424); Red Blood Count 4.51 M/mm3 (4.20-5.40); Red Cell Distribution Width 12.5 % (11.5-17.5)
[2023-08-14 14:51] LABS: T4 (Thyroxine) 9.6 ug/dl (5.53-11.0)
[2023-08-14 15:18] LABS: Thyroid Stimulating Hormone 1.38 uIU/mL (0.465-4.68)
[2023-08-14 15:26] LABS: Blood Urea Nitrogen 20 mg/dl (7-17); Creatinine Clearance Estimated 73 mL/min (50-200); Estimated Glomerular Filt Rate 56 ml/min (>60); GFR (African American) 68 ML/MIN (>60)
[2023-08-14 15:28] VITALS: BP 103/69; PULSE 63; RESP 16; TEMP 36.7
== END 2023-08-14 15:28 | disposition home or self-care (01) ==
PROVIDERS: Emergency Provider Emergency Medicine; PCP Physician Assistant
DX: M79.604 Pain in right leg (principal); M79.605 Pain in left leg; K21.9 Gastro-esophageal reflux disease without esophagitis; E78.5 Hyperlipidemia, unspecified; I10 Essential (primary) hypertension
CPT/HCPCS: 80053; 82330; 83735; 84436; 84443; 85025; 93970; 99285

== ENCOUNTER 2024-03-27 14:06 | Outpatient (CLI) | payer BC, SELFPAY ==
[2024-03-27 17:17] LABS: Basophils % 0.5 % (0.1-2.0); Eosinophils # 0.3 K/mm3 (0.0-0.4); Eosinophils % 3.8 % (0.1-12.0); Hematocrit 38.7 % (37.0-47.0); Hemoglobin 12.8 g/dL (12.2-16.2); Lymphocytes # 2.6 K/mm3 (0.7-4.5); Lymphocytes % 29.7 % (10-50); Mean Corpuscular Hemoglobin 30.5 pg (27.0-31.2); Mean Corpuscular Volume 92.3 fl (81-99); Mean Platelet Volume 9.1 fl (7.4-10.4); Monocytes # 0.5 K/mm3 (0.1-1.0); Monocytes % 5.4 % (1.7-9.3); Neutrophils # 5.2 K/mm3 (1.8-7.8); Neutrophils % 60.6 % (37.0-80.0); Platelet Count 313 K/mm3 (142-424); Red Blood Count 4.19 M/mm3 (4.20-5.40); Red Cell Distribution Width 13.6 % (11.5-17.5); White Blood Count 8.6 K/mm3 (4.8-10.8)
[2024-03-27 17:37] LABS: Alanine Aminotransferase 22 U/L (12-78); Albumin Level 3.9 g/dl (3.5-5.0); Albumin/Globulin Ratio 1.3 (1.1-1.8); Alkaline Phosphatase 81 U/L (38-126); Anion Gap 12.7 mEq/L (5-15); Aspartate Amino Transferase 25 U/L (14-36); Bilirubin,Total 0.4 mg/dl (0.2-1.3); Blood Urea Nitrogen 23 mg/dl (7-17); Calcium 9.6 mg/dl (8.4-10.2); Carbon Dioxide 25 mmol/L (22.0-30.0); Chloride 107 mmol/L (98-107); Chol/HDL Ratio 5.4 (1-3.5); Cholesterol 173 mg/dl (140-200); Estimated Glomerular Filt Rate 56 ml/min (>60); GFR (African American) 67 ML/MIN (>60); Globulin 2.9 g/dL (1.3-3.2); Glucose 77 mg/dl (74-100); HDL Cholesterol 32 mg/dl (40-60); Potassium 3.7 mmoL/L (3.5-5.1); Sodium 141 mmol/L (136-145); Total Protein,Serum 6.8 g/dl (6.3-8.2); Triglycerides 215 mg/dl (30-150); VLDL Cholesterol 43 mg/dL (0-40)
[2024-03-27 17:50] LABS: 25-OH Vitamin D, Total 30.5 ng/mL (30-100)
[2024-03-27 17:51] LABS: Direct LDL Cholesterol 87.04 mg/dL (100-129)
[2024-03-27 18:10] LABS: Thyroid Stimulating Hormone 1.91 uIU/mL (0.465-4.68)
== END 2024-03-27 23:59 | disposition home or self-care (01) ==
LOC: LAB.DROPOF 03-28 14:07
PROVIDERS: PCP Physician Assistant; Visit Provider Physician Assistant
DX: E78.5 Hyperlipidemia, unspecified (principal); I10 Essential (primary) hypertension; E55.9 Vitamin D deficiency, unspecified
CPT/HCPCS: 80050; 80053; 80061; 82306; 84443; 85025

== ENCOUNTER 2024-04-25 15:38 | Outpatient (CLI) | payer BC, SELFPAY ==
[2024-04-25 16:20] LABS: Albumin Level 4.7 g/dl (3.5-5.0); Chloride 102 mmol/L (98-107)
[2024-04-25 16:21] LABS: Potassium 3.5 mmoL/L (3.5-5.1); Sodium 139 mmol/L (136-145)
[2024-04-25 16:23] LABS: Blood Urea Nitrogen 26 mg/dl (7-17); Estimated Glomerular Filt Rate 35 ml/min (>60); GFR (African American) 42 ML/MIN (>60)
[2024-04-25 16:24] LABS: Alanine Aminotransferase 30 U/L (12-78); Albumin/Globulin Ratio 1.4 (1.1-1.8); Alkaline Phosphatase 83 U/L (38-126); Anion Gap 15.5 mEq/L (5-15); Aspartate Amino Transferase 29 U/L (14-36); Bilirubin,Total 0.7 mg/dl (0.2-1.3); Calcium 9.5 mg/dl (8.4-10.2); Carbon Dioxide 25 mmol/L (22.0-30.0); Globulin 3.3 g/dL (1.3-3.2); Glucose 106 mg/dl (74-100)
== END 2024-04-25 23:59 | disposition home or self-care (01) ==
LOC: LAB.DROPOF 15:43
PROVIDERS: PCP Physician Assistant; Visit Provider Physician Assistant
DX: I10 Essential (primary) hypertension (principal)
CPT/HCPCS: 80053

== ENCOUNTER 2024-09-08 13:49 | Outpatient (CLI) | payer BC, SELFPAY ==
[2024-09-08 13:14] LABS: Microscopic, Urine URINE MICROSCOPIC (MICROSCOPIC)
[2024-09-08 13:26] LABS: Basophils % 0.2 % (0.1-2.0); Eosinophils # 0.3 K/mm3 (0.0-0.4); Monocytes # 0.5 K/mm3 (0.1-1.0); Monocytes % 5.7 % (1.7-9.3)
[2024-09-08 14:29] LABS: Free T4 (Free Thyroxine) 1.06 ng/dl (0.78-2.19)
[2024-09-08 14:30] LABS: 25-OH Vitamin D, Total 33.2 ng/mL (30-100)
[2024-09-08 14:33] LABS: Albumin Level 4.5 g/dl (3.5-5.0); Chloride 101 mmol/L (98-107)
[2024-09-08 14:34] LABS: Potassium 4.2 mmoL/L (3.5-5.1); Sodium 136 mmol/L (136-145)
[2024-09-08 14:36] LABS: Alanine Aminotransferase 31 U/L (12-78); Albumin/Globulin Ratio 1.6 (1.1-1.8); Alkaline Phosphatase 79 U/L (38-126); Anion Gap 11.2 mEq/L (5-15); Aspartate Amino Transferase 33 U/L (14-36); Bilirubin,Total 0.5 mg/dl (0.2-1.3); Blood Urea Nitrogen 24 mg/dl (7-17); Carbon Dioxide 28 mmol/L (22.0-30.0); Cholesterol 269 mg/dl (140-200); Estimated Glomerular Filt Rate 56 ml/min (>60); GFR (African American) 67 ML/MIN (>60); Globulin 2.9 g/dL (1.3-3.2); Phosphorous 3.8 mg/dl (2.5-4.5); Total Protein,Serum 7.4 g/dl (6.3-8.2); Triglycerides 246 mg/dl (30-150); VLDL Cholesterol 49 mg/dL (0-40)
[2024-09-08 14:37] LABS: Calcium 9.8 mg/dl (8.4-10.2); Chol/HDL Ratio 8.2 (1-3.5); Glucose 91 mg/dl (74-100); HDL Cholesterol 33 mg/dl (40-60); Iron 90 ug/dL (37-170); Magnesium 2.1 mg/dl (1.6-2.3)
[2024-09-08 14:38] LABS: Appearance,Urine CLEAR (Clear); Bilirubin,Urine Negative (Negative); Blood, Urine Negative (Negative); Color,Urine YELLOW (Yellow); Glucose,Urine (UA) Negative (Negative); Ketones,Urine Negative (Negative); Leukocyte Esterase,Urine 1+ (Negative); Nitrate,Urine Negative (Negative); Protein,Urine Negative (Negative); Specific Gravity, Urine 1.025 (1.005-1.030); Urobilinogen,Urine 0.2 EU/dl (0.2)
[2024-09-08 14:47] LABS: Total Iron Binding Capacity 382 ug/dL (265-497)
[2024-09-08 14:52] LABS: Hemoglobin A1C 5.7 % (4.0-6.0)
[2024-09-08 15:06] LABS: Thyroid Stimulating Hormone 2.01 uIU/mL (0.465-4.68)
[2024-09-08 15:43] LABS: Vitamin B12 602 pg/mL (239-931)
[2024-09-08 15:47] LABS: Folate 5.03 ng/mL
[2024-09-08 17:12] LABS: Hematocrit 41.5 % (37.0-47.0); Hemoglobin 13.6 g/dL (12.2-16.2); Lymphocytes # 2.6 K/mm3 (0.7-4.5); Lymphocytes % 29.3 % (10-50); Mean Corpuscular HGB Conc 32.8 g/dL (31.8-35.4); Mean Corpuscular Hemoglobin 29.4 pg (27.0-31.2); Mean Corpuscular Volume 89.6 fl (81-99); Mean Platelet Volume 9.8 fl (7.4-10.4); Neutrophils # 5.5 K/mm3 (1.8-7.8); Platelet Count 286 K/mm3 (142-424); Red Blood Count 4.63 M/mm3 (4.20-5.40); Red Cell Distribution Width 12.4 % (11.5-17.5)
[2024-09-08 23:31] LABS: HIV Combo NEGATIVE (Negative)
[2024-09-09 05:33] LABS: HCV Ab Non Reactive (Non Reactive)
[2024-09-09 09:34] LABS: Ferritin 46.3 ng/ml (11.1-264)
== END 2024-09-08 23:59 | disposition home or self-care (01) ==
LOC: LAB.DROPOF 13:49
PROVIDERS: PCP Nurse Practitioner Family; Visit Provider Nurse Practitioner Family
DX: Z11.4 Encounter for screening for human immunodeficiency virus [HIV] (principal); Z11.59 Encounter for screening for other viral diseases; Z13.1 Encounter for screening for diabetes mellitus; E55.9 Vitamin D deficiency, unspecified; G25.81 Restless legs syndrome; R53.83 Other fatigue; E78.5 Hyperlipidemia, unspecified; E66.3 Overweight; Z68.29 Body mass index [BMI] 29.0-29.9, adult; I10 Essential (primary) hypertension; N39.0 Urinary tract infection, site not specified; B95.1 Streptococcus, group B, as the cause of diseases classified elsewhere
CPT/HCPCS: 80050; 80053; 80061; 81001; 82306; 82607; 82728; 82746; 83036; 83540; 83550; 83735; 84100; 84156; 84439; 84443; 85025; 86803; 87086; 87088; 87186; 87389